=== PATIENT | male | born 1955 | race Caucasian/White ===

== ENCOUNTER → 2017-02-11 | Day surgery (SDC) | payer OTHER ==
[~2017-02-11] VITALS: Ht 185.4 cm; Wt 95.5 kg
[~2017-02-11] MED LIST: ASPI-973 PO; ATEN25TA PO; ATRV10T PO; CITA40TA PO; Ketamine 10 mg/mL 20 mL Inj ONE; Lactated Ringer's 1,000 ML IV ONE; Lactated Ringer's 1,000 ML IV SCH; MetoCLOpramide 5 mg/mL 2 mL Inj IVPUSH PRN; Ondansetron 2 mg/mL 2 mL Inj IVPUSH PRN; Propofol 10,000 mCg/mL 20 mL Inj ONE; fentaNYL-PF 50 mCg/mL 2 mL Inj ONE
--- NOTE | 2017-02-11 07:38 | PCM.HPANE ---
Patient Data Surgeon Admitting Provider: Attending Provider:Howard Spears MD Primary Care Physician:Marshall Moyer MD Other Provider:Zuly Saulingham Anesthesia Reason for Visit Adenomatous Polyp Of Colon, Gerd Ht/WT & BMI Body Mass Index Allergies Coded Allergies: latex (Verified Allergy, Severe, 12/30/13) niacin (Verified Adverse Reaction, Intermediate, muscle aches, 02/07/17) rosuvastatin (Verified Adverse Reaction, Intermediate, muscle aches, ) simvastatin (Verified Adverse Reaction, Intermediate, muscle aches, 02/07/17 ) Past Anesthesia History Anesthesia History: Denies:: Abnormal Airway, Anesthesia Reactions, Difficult Intubation, Fam Anesthesia Reaction, Malignant Hyperthermia Diabetes History Hx Diabetes?: No MRSA MRSA: No Medications Blood Thinner: Aspirin Hypertension Medication: No Home Meds Incl Beta Arcadio: Yes Reported Medications Citalopram Hydrobromide (Celexa)40 Mg Aoopli67 Mg PO DAILY Ref 0 02/07/17 Atenolol 25 Mg Tnkaqh89 Mg PO DAILY #30 TABLET Ref 0 02/07/17 Aspirin 81 Mg Nkbkzl10 Mg PO DAILY Ref 0 02/07/17 Atorvastatin (Lipitor)10 Mg Tab10 Mg PO DAILY Ref 0 02/07/17 Discontinued Reported Medications Nicotine Polacrilex (Nicorette)4 Mg Gum4 Mg BC PRN PRN For Tobacco Withdrawal Ref 0 12/31/13 Clonazepam (Klonopin)0.5 Mg Tablet0.5 Mg PO HS PRN For Anxiety 30 Days Ref 0 12/30/13 Aspirin-Expunged Drug, Do Not Renew! (Aspirin EC-Expunged Drug, Do Not Renew!) 81 Mg Bldrpl68 Mg PO DAILY 12/25/10 Citalopram-Expunged Drug, Do Not Renew! 10 Mg Ppxkwf11 Mg PO DAILY 12/25/10 Atenolol-Expunged Drug, Do Not Renew! 25 Mg Kfqmly53 Mg PO DAILY 12/25/10 Esomeprazole-Expunged Drug, Do Not Renew! 40 Mg Capsule.dr40 Mg PO DAILY 12/25/10 History History of ENT Problems?: Yes HEENT History: Positive for:: Sinus Problem Denies:: Abnormal Airway Difficult Intubation Dysphagia Hearing Problem Denture Type: None Teeth Condition: Within Normal Limits Hx of Heart Problems?: No Cardiovascular History: Positive for:: Chest Pain Heart Murmur Irregular Heartbeat (palpatations) Denies:: AICD Atrial Fibrillation Hypertension Pacemaker Valvular Heart Disease Hx of Respiratory Problem?: Yes Respiratory History: Positive for:: COPD Dyspnea Denies:: Asthma Cough Hemoptysis Pneumonia Tuberculosis Hx Neurologic Problems?: No Neurological History: Denies:: CVA Hx of GI Problems?: Yes Hx of Problems?: Yes Male Hx: Positive for:: Prostate Problems Denies:: Scrotal Mass Testicular Surgery Skin History: Denies:: History Skin Disorders? Pressure Ulcers Hx Musculoskeletal Problems?: Yes Musculoskeletal History: Positive for:: Back Injury Musculoskeletal Trauma Denies:: Joint Replacement Hx of Psycho/Social Problems?: Yes Psycho Social History: Positive for:: Anxiety Hx Depression Hx Surgeries?: Yes (TURP, hand surgeries x2, heart cath 5-6 years ago) Hx Any Other Health Problems?: Yes Other History: Positive for:: Hospitalization Denies:: Cancer Endocrine Disease Thyroid Disease History Blood Transfusions: Positive for:: Blood Transfusions Denies:: Blood Transfuse Reaction Hx Diabetes: No Hx Alcohol Use: YesHx Substance Use: No Stop/Bang Treated for Sleep Apnea?: No Do You Have a CPAP Machine?: No Risk Assessment Category Category 1A: Patient has history of documented sleep apnea, and HAS NOT received any narcotic, sedative or anesthesia administration during this stay. Category 1B: Patient has history of documented sleep apnea, and HAS received any narcotic , sedative or anesthesia administration during this stay Category 2: Patient has SUSPECTED Obstructive Sleep Apnea, and HAS received any narcotic , sedative or anesthesia administration during this stay. Category 3: Patient has SUSPECTED Obstructive Sleep Apnea and HAS NOT received narcotic, sedative or anesthesia administration during this stay. Category 4: Outpatient in Procedural Areas with known sleep apnea or who screen positive for High Risk via the STOP/BANG questionnaire. Exam Exam General Appearance: Alert, Oriented X3, Cooperative, No Acute Distress HEENT/AIRWAY: MP 2 Lungs: Clear to Auscultation, Normal Air Movement Heart: Exam Unremarkable, Regular Rate/Rhythm, No Murmurs/Rubs/Gallops Plan Impression Patient chart reviewed, patient interviewed and anesthestic plan with risks, benefits, and alternatives discussed, and informed consent obtained. ASA Physical Status: ASA2 Mod Systemic Disease Anesthetic Plan: MAC Bene/Risks/Altern/Consents: Yes HP Complete Prior to Induction: Yes Fabrice Loera MD Feb 11, 2017 07:38
[2017-02-11 07:39] VITALS: BP 126/69; PULSE 64; RESP 14; O2SAT 98
[2017-02-11 08:43] VITALS: BP 94/71; PULSE 59; RESP 10; O2SAT 96
[2017-02-11 08:54] VITALS: BP 108/64; PULSE 58; RESP 12; O2SAT 97
[2017-02-11 09:03] VITALS: BP 111/69; PULSE 56; RESP 12; O2SAT 99
--- NOTE | 2017-02-11 13:23 | ENDO ---
[address] [address] ENDOSCOPY PROCEDURE PATIENT: KARLI ORTEGA : 1955 MR#: [id number] ADMIT: 02/11/2017 JOB ID: [id number] DATE: 02/11/2017 PRIMARY PROVIDER: Shital Moyer MD PROCEDURES: Esophagogastroduodenoscopy and a colonoscopy with cold forceps polypectomy. INDICATION: A 61-year-old male with a lengthy history of intermittent reflux and a personal history of colon polyps. EQUIPMENT: PCF H 180 AL and a GIF H 180 J. SEDATION: Monitored anesthesia as provided by Dr. Fabrice Loera. COMPLICATIONS: None identified. BOWEL PREPARATION: Fair, adequate exam. PROCEDURE INFORMATION: After the risks and benefits were explained, written and verbal informed consent was obtained. The patient was brought into the endoscopy suite and placed into the left lateral decubitus position. Sedation was achieved using the above-stated medications with the addition of oxygen via nasal cannula. The scope was introduced into the mouth through the bite block and advanced to the second portion of the duodenum. The scope was slowly withdrawn to carefully examine the mucosa for any defects or lesions. Retroflexed views were accomplished in the stomach, the stomach was decompressed, and the scope removed from the patient, who tolerated the procedure well. The patient was then turned around and a digital rectal examination accomplished. Mild internal hemorrhoids noted. The scope was introduced into the rectum and advanced to the cecum as identified by the appendiceal orifice and the ileocecal valve. The scope was slowly withdrawn to carefully examine the mucosa for any defects or lesions. Multiple direct views were made through the dentate line for exclusion of pathology. The colon was decompressed and the scope removed the patient, who tolerated the procedure well. FINDINGS: 1. Duodenum: No significant mucosal pathology appreciated from the bulb through to the second portion. 2. Stomach: No mass lesions. No ulcers. No outlet obstruction. Retroflexed views of the LES were unremarkable. No significant mucosal pathology appreciated. Some mild erythema seen in the antrum, consistent with aspirin use. 3. Esophagus: The squamocolumnar junction generally correlated with the top of the gastric folds. The GEJ was at about 43 cm from the incisors. The patient had evidence of LA grade B erosive esophagitis. I did not appreciate any obvious evidence of Cabrera's. No neoplasia is suggested. 4. Colon: There was a diminutive 2 mm polyp removed with cold forceps in the cecum. The patient had some diverticulosis in the left colon. No other significant polyps or mass lesions were seen throughout. No inflammatory features. Moderate internal hemorrhoids were noted. ENDOSCOPIC DIAGNOSES: 1. LA grade B erosive esophagitis. 2. Very subtle sliding hiatal hernia. 3. Diminutive colon polyp. 4. Diverticulosis. 5. Hemorrhoids. RECOMMENDATIONS: 1. Await histopathology. 2. Repeat colonoscopy in five years. 3. Anti-reflux therapy is suggested. Protonix is offered. 4. Follow up on clinical results in GI Clinic with Mati Teixeira PA-C, in the next approximately four weeks.
--- NOTE | 2017-02-12 07:22 | PCM.ANEP1 ---
Post Anesthesia PACU Phase 1 Assessment Anesthetic Administered: MAC Level of Alertness: Awake, talking TAPIA's with Equal Strength: Yes Pain: No Nausea or Vomiting: No CV Function & Hydration Stable: Yes Airway Device: none Lungs: Clear to Auscultation, Normal Air Movement Dermatome Level: Full Sensation PACU Phase 2 Assessment Complications: No Follow up Care: No Patient Instructions Provided: N/A Fabrice Loera MD Feb 12, 2017 07:22
--- NOTE | 2017-02-13 16:16 | PATH ---
SURGICAL PATHOLOGY Attending Physician:Bridger Giang CASE STATUS: Signed Out PATIENT NAME: KARLI ORTEGA PID: [id number] : 1955 DATE COLLECTED:02/11/2017 19:50 SPECIMEN: Colon, Polyp CLINICAL HISTORY: 1). CECAL POLYP X 1 FINAL DIAGNOSIS: Cecum, Polyp x1, Biopsy: Tubular adenoma. ICD10: D12.0 GROSS DESCRIPTION: The specimen is received in one formalin filled container labeled with the patient's name, sublabeled "cecal polyp" consists of a 0.2 x 0.2 x 0.1 CM portion of tissue which is entirely submitted in one cassette. 02/11/2017DC ICD-9 CODES: CPT CODES: 1: 28813 Electronically Signed Out Lydia Wisdom MD [facility] [address], [place] [address] Technical component performed at [facility], [facility] [address], [place], [address]
== END | disposition home or self-care (01) ==
LOC: END 00:10
PROVIDERS: ATTEND Internal Medicine Gastroenterology
DX: Z12.11 Encounter for screening for malignant neoplasm of colon (principal); D12.0 Benign neoplasm of cecum; K57.30 Diverticulosis of large intestine without perforation or abscess without bleeding; K64.8 Other hemorrhoids; Z86.010 Personal history of colon polyps; Z80.0 Family history of malignant neoplasm of digestive organs; K44.9 Diaphragmatic hernia without obstruction or gangrene; K22.10 Ulcer of esophagus without bleeding; K21.9 Gastro-esophageal reflux disease without esophagitis; I10 Essential (primary) hypertension; E78.5 Hyperlipidemia, unspecified; G47.30 Sleep apnea, unspecified; Z79.82 Long term (current) use of aspirin
CPT/HCPCS: 43235; 45380; J2250; J2704; J3010; J7120